=== PATIENT | male | born 1930 | race Caucasian/White ===

== ENCOUNTER 2016-08-30 12:04 | Emergency (ER) | payer OTHER ==
[2016-08-30 12:17] VITALS: BMI 25.0
--- NOTE | 2016-08-30 12:37 | PDOC ---
History of Present Illness - General Chief Complaint: Injury Stated Complaint: FALL Time Seen by Provider: 08/30/16 12:37 History Source: Patient Exam Limitations: No Limitations - History of Present Illness Initial Comments: 08/30/16 12:37 CHIEF COMPLAINT HISTORY OF PRESENT ILLNESS: History obtained from patients as he has alzheimers Patient is a 86 year old male, a resident of [facility], was brought in after he tripped and fell hitting his head on the right side. A/c to the patient's , she was informed that patient tripped and fell from a chair this morning at around 10:30am. Didn't lose consciousness or have seizure. Patient has no complaints. Denies headache, dizziness, loc, tingling, numbness, abdominal pain, nausea, vomiting, chest pain, sob, cough, palpitation. Bowel/Bladder habit normal. Sleep/Appetite Normal. Recent Travel: None PAST MEDICAL HISTORY: Hypertension, Hyperlipidemia, Alzheimers. PAST SURGICAL HISTORY: Couldn't be obtained Social History: Smoking: Denies Alcohol: Denies Drugs: Denies Family History: Allergies: NKDA Past History - Past Medical History Allergies/Adverse Reactions: Allergies Allergy/AdvReac Type Severity Reaction Status Date / Time No Known Allergies Allergy Verified 08/30/16 12:18 Home Medications: Ambulatory Orders Amlodipine Besylate [Norvasc -] 10 mg PO DAILY #30 tablet 05/31/14 Memantine HCl [Namenda -] 5 mg PO BID #60 tab 05/31/14 Tamsulosin HCl [Flomax -] 0.4 mg PO DAILY@0830 #30 cap.er.24h 05/31/14 Carvedilol [Coreg -] 3.125 mg PO BID 08/30/16 Citalopram Hydrobromide [Celexa -] 10 mg PO DAILY 08/30/16 Dementia: Yes Disorders: Yes (enlaerged prostate) HTN: Yes Hypercholesterolemia: Yes Suicide Attempt (Hx): No - Surgical History Abdominal Surgery: Yes (hernia) Cholecystectomy: Yes - Psycho/Social/Smoking Cessation Hx Anxiety: Yes Suicidal Ideation: No Smoking History: Never smoked Hx Alcohol Use: No Drug/Substance Use Hx: No Substance Use Type: None Review of Systems - Review of Systems Able to Perform ROS?: Yes Comments:: 08/30/16 17:19 CONSTITUTIONAL:~ Absent: fever, chills, diaphoresis, generalized weakness, malaise, loss of appetite HEENT:~ Absent: rhinorrhea, nasal congestion, throat pain, throat swelling, difficulty swallowing, mouth swelling, ear pain, eye pain, visual Changes CARDIOVASCULAR:~ Absent: chest pain, syncope, palpitations, irregular heart rate, lightheadedness , peripheral edema RESPIRATORY:~ Absent: cough, shortness of breath, dyspnea with exertion, orthopnea, wheezing, stridor, hemoptysis GASTROINTESTINAL: Absent: abdominal pain, abdominal distension, nausea, vomiting, diarrhea, constipation, melena, hematochezia GENITOURINARY:~ Absent: dysuria, frequency, urgency, hesitancy, hematuria, flank pain, genital pain MUSCULOSKELETAL:~ Absent: myalgia, arthralgia, joint swelling SKIN:~ Absent: rash, itching, pallor HEMATOLOGIC/IMMUNOLOGIC:~ Absent: easy bleeding, easy bruising, lymphadenopathy, frequent infections ENDOCRINE: Absent: unexplained weight gain, unexplained weight loss, heat intolerance, cold intolerance NEUROLOGIC: Present: Laceration in the right eyebrow Absent: headache, focal weakness or paresthesias, dizziness, unsteady gait, seizure, mental status changes, bladder or bowel incontinence PSYCHIATRIC:~ Absent: anxiety, depression, suicidal or homicidal ideation, hallucinations. Is the patient limited Turkmen proficient: No *Physical Exam - Vital Signs Last Vital Signs Temp Pulse Resp BP Pulse Ox 97.6 F 64 17 127/108 99 08/30/16 12:15 08/30/16 12:15 08/30/16 12:15 08/30/16 12:15 08/30/16 12:15 - Physical Exam Comments: 08/30/16 17:43 PE: GENERAL: Awake, alert, and fully oriented, in no acute distress HEAD: No signs of trauma EYES: PERRLA, EOMI, sclera anicteric, conjunctiva clear ENT: Auricles normal inspection, hearing grossly normal, nares patent, oropharynx clear without exudates. Moist mucosa NECK: Normal ROM, supple, no lymphadenopathy, JVD, or masses LUNGS: Breath sounds equal, clear to auscultation bilaterally. No wheezes, and no crackles.. HEART: Regular rate and rhythm, normal S1 and S2, no murmurs, rubs or gallops ABDOMEN: Soft, nontender, normoactive bowel sounds. No guarding, no rebound. No masses EXTREMITIES: Normal range of motion, no edema. No clubbing or cyanosis. No cords, erythema, or tenderness NEUROLOGICAL: Cranial nerves II through XII grossly intact. Normal speech, normal gait SKIN: Right eye brow laceration approximately 7 x 0.5 cm Warm, Dry, normal turgor, no rashes or lesions noted. Medical Decision Making - Medical Decision Making 08/30/16 12:30 Patient seen and examined at bed side. Vitals noted, unremarkable. Patient looks comfortable. Physical exam: positive for .Right eye brow laceration approximately 7 x 0.[address] scan of head without contrast 08/30/16 13:[address] scan report reviewed, no acute pathology Procedure: suture application in the right eyebrow Under sterile environment, for anesthesia 1 % Lidocaine with Epi was used 7 ml was injected subcutaneously Skin brought together ad simple interrupted suture was done with 4' Proline suture material in usual fashion 4 sutures were applied There was No dirt or foreign body remains It was cleaned with normal saline and bandaid was applied Clinical impression: Laceration over the right eyebrow s/p fall CT head negative Suture applied Patient has been advised to keep the area clean and dry, to return to the ED for suture removal after 7 days or to return if any NEW symptoms develop. Illness, Investigation and Plan of care explained to the patient, his and son. They verbalized understanding. Case seen and discussed with Dr. Agarwal. *DC/Admit/Observation/Transfer Diagnosis at time of Disposition: Laceration - Discharge Dispostion Admit: No - Referrals Referrals: Niru Hewitt [Primary Care Provider] - - Patient Instructions Printed Discharge Instructions: How to Care for a Laceration After Repair Additional Instructions: I am sorry you had a fall today. We did a head CT which looks normal. You had a small cut on the right eyebrow so we sutured it and you have 4 sutures. Please return to the Emergency for suture removal after 7 days. During the course of time, if you develop any NEW symptoms like severe headache, bleeding, altered mental status, infection or any problems, return to the Emergency Department immediately.
[2016-08-30] MEDS ORDERED: LIDOCAINE 1%/EPI 1:100000 (50 ML MULTI DOSE VIAL) INF ONE (14:44)
[2016-08-30] MEDS ORDERED: LIDOCAINE 1%/EPI 1:100000 (50 ML MULTI DOSE VIAL) ONE (14:44)
[2016-08-30 16:39] VITALS: BP 109/59; PULSE 75; TEMP 97.9
== END 2016-08-30 16:53 ==
LOC: JER 12:04
PROC: 0HQ1XZZ Repair Face Skin, External Approach (ICD-10-PCS; principal; 2016-08-30)
DX: S01.111A Laceration without foreign body of right eyelid and periocular area, initial encounter (principal); W07.XXXA Fall from chair, initial encounter; Y93.89 Activity, other specified; Y92.128 Other place in nursing home as the place of occurrence of the external cause; I10 Essential (primary) hypertension; E78.5 Hyperlipidemia, unspecified; E78.00 Pure hypercholesterolemia, unspecified; N40.0 Benign prostatic hyperplasia without lower urinary tract symptoms; G30.8 Other Alzheimer's disease; F02.80 Dementia in other diseases classified elsewhere, unspecified severity, without behavioral disturbance, psychotic disturbance, mood disturbance, and anxiety
CPT/HCPCS: 70450-TC; 99281-25

== ENCOUNTER 2017-08-28 16:52 | Emergency (ER) | payer OTHER ==
[2017-08-28 17:09] VITALS: BMI 28.7
[2017-08-28] MEDS ORDERED: SODIUM CHLORIDE 500 ML IV STA (17:13)
--- NOTE | 2017-08-28 17:13 | PDOC ---
History of Present Illness - General History Source: Care Home Records, Other (emt) - History of Present Illness Occurred: reports: this afternoon <Emma Rizzo - Last Filed: 08/28/17 18:51> <Holly Mitchell - Last Filed: 08/28/17 21:00> - General Chief Complaint: Injury Stated Complaint: FALL Time Seen by Provider: 08/28/17 17:00 Past History - Past Medical History Dementia: Yes Disorders: Yes (enlaerged prostate) HTN: Yes Hypercholesterolemia: Yes Psychiatric Problems: (dementia) - Surgical History Abdominal Surgery: Yes (hernia) Cholecystectomy: Yes - Suicide/Smoking/Psychosocial Hx Smoking History: Never smoked Hx Alcohol Use: No Drug/Substance Use Hx: No Substance Use Type: None <Emma Rizzo - Last Filed: 08/28/17 18:51> <Holly Mitchell - Last Filed: 08/28/17 21:00> - Past Medical History Allergies/Adverse Reactions: Allergies Allergy/AdvReac Type Severity Reaction Status Date / Time No Known Allergies Allergy Verified 08/28/17 17:03 Home Medications: Ambulatory Orders Amlodipine Besylate [Norvasc -] 10 mg PO DAILY 08/28/17 Carvedilol [Coreg] 3.125 mg PO BID 08/28/17 Cephalexin Monohydrate [Keflex -] 500 mg PO BID #20 capsule 08/28/17 Cyanocobalamin [Vitamin B12 -] 100 mcg PO DAILY 08/28/17 Dextran 70/Hypromellose/Pf [Artificial Tears Drops] 1 each OP BID 08/28/17 Ferrous Sulfate [Ferosul] 330 mg PO DAILY 08/28/17 Tamsulosin HCl [Flomax] 0.4 mg PO DAILY 08/28/17 Review of Systems - Review of Systems Able to Perform ROS?: No (hx per [facility] staff) Constitutional: No: Fever Respiratory: No: Cough ABD/GI: No: Diarrhea, Vomiting Neurological: No: Seizure <Emma Rizzo Last Filed: 08/28/17 18:51> *Physical Exam - Physical Exam General Appearance: Yes: Appropriately Dressed. No: Apparent Distress HEENT: positive: Other (abrasion to mid forehead and over nasal bridge, no facial deformity or crepitus, EOMI) Neck: positive: Supple Respiratory/Chest: positive: Lungs Clear, Normal Breath Sounds. negative: Respiratory Distress Cardiovascular: positive: Regular Rate, S1, S2 Gastrointestinal/Abdominal: positive: Soft. negative: Tender Extremity: positive: Normal Inspection, Normal Range of Motion, Other (no deformity ). negative: Tender, Swelling Integumentary: positive: Dry, Warm Neurologic: positive: Alert, Normal Mood/Affect <Emma Rizzo - Last Filed: 08/28/17 18:51> - Vital Signs Last Vital Signs Temp Pulse Resp BP Pulse Ox 98.0 F 75 18 143/65 95 08/28/17 17:03 08/28/17 17:03 08/28/17 17:03 08/28/17 17:03 08/28/17 17:03 <Holly Mitchell - Last Filed: 08/28/17 21:00> Heart Score/ECG Review - ECG Intrepretation Comment:: 08/28/17 17:34 EKG with first degree AV block @ 75 bpm, unremarkable EKG otherwise <Emma Rizzo - Last Filed: 08/28/17 18:51> ED Treatment Course - LABORATORY CBC & Chemistry Diagram: 08/28/17 17:35 08/28/17 17:35 - RADIOLOGY Radiology Studies Ordered: Category Date Time Status FACIAL BONES CT W/O CONTRAST [CT] Stat CT Scan 08/28/17 17:[address] WITHOUT CONTRAST [CT] Stat CT Scan 08/28/17 17:07 Ordered CHEST X-RAY PORTABLE* [RAD] Stat Radiology 08/28/17 17:08 Ordered HIP & PELVIS-LEFT [RAD] Stat Radiology 08/28/17 17:08 Ordered HIP & PELVIS-RIGHT [RAD] Stat Radiology 08/28/17 17:08 Ordered <Emma Rizzo - Last Filed: 08/28/17 18:51> - LABORATORY CBC & Chemistry Diagram: 08/28/17 17:35 08/28/17 17:35 - ADDITIONAL ORDERS Additional order review: Laboratory Results 08/28/17 08/28/17 20:00 17:35 Sodium 146 H Potassium 3.5 Chloride 110 H Carbon Dioxide 27 Anion Gap 9 BUN 27 H D Creatinine 0.7 D Creat Clearance w eGFR > 60 Random Glucose 98 Calcium 8.7 Total Bilirubin 0.4 D AST 11 L ALT 20 Alkaline Phosphatase 100 Creatine Kinase 29 L Troponin I < 0.02 Total Protein 7.1 Albumin 3.3 L Urine Color Yellow Urine Appearance Clear Urine pH 5.0 Ur Specific [place] 1.024 Urine Protein Negative Urine Glucose (UA) Negative Urine Ketones Negative Urine Blood Negative Urine Nitrite Negative Urine Bilirubin Negative Urine Urobilinogen Negative Ur Leukocyte Esterase 3+ H Urine WBC (Auto) 40 Urine RBC (Auto) 11 Urine Bacteria Rare Hyaline Casts 2 Urine Mucus Rare 08/28/17 17:35 RBC 4.77 MCV 83.6 MCHC 33.5 RDW 13.9 MPV 7.8 Neutrophils % 59.8 Lymphocytes % 31.7 D Monocytes % 6.0 Eosinophils % 2.2 Basophils % 0.3 - Medications Given in the ED: ED Medications Discontinued Medications Generic Name Dose Route Start Last Admin Trade Name Freq PRN Reason Stop Dose Admin Sodium Chloride 500 mls @ 500 mls/hr 08/28/17 17:13 08/28/17 17:37 Normal Saline - IV 08/28/17 18:12 Not Given ASDIR STA <Holly Mitchell - Last Filed: 08/28/17 21:00> Medical Decision Making - Medical Decision Making 08/28/17 17:08 87-year-old male history of dementia, wheelchair bound, hypertension, hyperlipidemia, BPH, sent from [facility] after witnessed fall today. As per EMT staff reported that while sitting in wheelchair this afternoon. Patient fell forward hitting his head. No LOC or seizures. Patient not able to give any history. See exam Witness fall w/ head injury in [facility] No reported LOC, seizures or vomiting Baseline since per [facility] staff Not on blood thinners Stable w/ ED w/ facial abrasions, moving all extremities w/ no e/o serious injury at this time -CTH/facial bones -ekg/labs/ua as pt unable to give hx -[facility] if workup is unremarkable <Emma Rizzo - Last Filed: 08/28/17 18:51> *DC/Admit/Observation/Transfer <Emma Rizzo - Last Filed: 08/28/17 18:51> <Holly Mitchell - Last Filed: 08/28/17 21:00> Diagnosis at time of Disposition: Abrasion Fall Qualifiers: Encounter type: initial encounter Qualified Code(s): W19.XXXA - Unspecified fall, initial encounter - Discharge Dispostion Condition at time of disposition: Good - Prescriptions Prescriptions: Cephalexin Monohydrate [Keflex -] 500 mg PO BID #20 capsule - Referrals Referrals: Niru Hewitt [Primary Care Provider] - - Patient Instructions Printed Discharge Instructions: DI for Abrasion Additional Instructions: Your labs, urine, ekg, CAT scan of your head, facial bones and chest x-ray were all unremarkable. Continue to follow-up with your PMD he has a UTI. we have given first dose of cephalexin here. he should cephalexin 500mg twice daily for 10 days - Post Discharge Activity
[2017-08-28 17:49] LABS: BASO % 0.3 % (0-2.0); EOS % 2.2 % (0-4.5); HEMATOCRIT 39.9 % (35.4-49); HEMOGLOBIN 13.4 GM/dL (11.7-16.9); LYMPH % 31.7 % (8-40); MCHC 33.5 g/dl (32.0-35.9); MEAN CELL VOLUME 83.6 fl (80-96); MEAN PLT VOLUME 7.8 fl (7.5-11.1); NEUT % 59.8 % (42.8-82.8); PLATELET COUNT 190 K/MM3 (134-434); RBC 4.77 M/mm3 (4.00-5.60); RDW 13.9 % (11.9-15.9); WHITE BLOOD COUNT 7.4 K/mm3 (4.0-10.0)
[2017-08-28 18:13] LABS: ALBUMIN 3.3 g/dl (3.4-5.0); ANION GAP 9 (8-16); BILIRUBIN,TOTAL 0.4 mg/dL (0.2-1.0); BLOOD UREA NITROGEN 27 mg/dL (7-18); CALCIUM 8.7 mg/dL (8.5-10.1); CHLORIDE 110 mmol/L (98-107); CO2 27 mmol/L (21-32); CREATININE 0.7 mg/dL (0.7-1.3); GLUCOSE,RANDOM 98 mg/dL (74-106); POTASSIUM 3.5 mmol/L (3.5-5.1); SGOT/AST 11 U/L (15-37); SGPT/ALT 20 U/L (12-78); SODIUM 146 mmol/L (136-145); TOT PROT 7.1 g/dl (6.4-8.2)
[2017-08-28 18:16] LABS: ALK PHOS 100 U/L (45-117)
[2017-08-28 20:14] LABS: URINE APPEARANCE CLEAR; URINE BILIRUBIN NEGATIVE (NEGATIVE); URINE BLOOD NEGATIVE (NEGATIVE); URINE COLOR YELLOW; URINE GLUCOSE (UA) NEGATIVE (NEGATIVE); URINE KETONE NEGATIVE (NEGATIVE); URINE NITRITE NEGATIVE (NEGATIVE); URINE PROTEIN NEGATIVE (NEGATIVE); URINE UROBILINOGEN NEGATIVE mg/dL (0.2-1.0)
[2017-08-28 20:24] LABS: URINE BACTERIA RARE /hpf (NONE SEEN); URINE HYALINE CAST 2 /lpf; URINE LEUK ESTERASE 3+ (NEGATIVE); URINE MUCUS RARE
[2017-08-28] MEDS ORDERED: CEPHALEXIN MONOHYDRATE 500 MG CAPSULE (UD) PO ONE (20:49)
--- NOTE | 2017-08-28 21:04 | PDOC ---
*Physical Exam - Vital Signs Last Vital Signs Temp Pulse Resp BP Pulse Ox 98.0 F 75 18 143/65 95 08/28/17 17:03 08/28/17 17:03 08/28/17 17:03 08/28/17 17:03 08/28/17 17:03 ED Treatment Course - LABORATORY CBC & Chemistry Diagram: 08/28/17 17:35 08/28/17 17:35 - ADDITIONAL ORDERS Additional order review: Laboratory Results 08/28/17 08/28/17 20:00 17:35 Sodium 146 H Potassium 3.5 Chloride 110 H Carbon Dioxide 27 Anion Gap 9 BUN 27 H D Creatinine 0.7 D Creat Clearance w eGFR > 60 Random Glucose 98 Calcium 8.7 Total Bilirubin 0.4 D AST 11 L ALT 20 Alkaline Phosphatase 100 Creatine Kinase 29 L Troponin I < 0.02 Total Protein 7.1 Albumin 3.3 L Urine Color Yellow Urine Appearance Clear Urine pH 5.0 Ur Specific [place] 1.024 Urine Protein Negative Urine Glucose (UA) Negative Urine Ketones Negative Urine Blood Negative Urine Nitrite Negative Urine Bilirubin Negative Urine Urobilinogen Negative Ur Leukocyte Esterase 3+ H Urine WBC (Auto) 40 Urine RBC (Auto) 11 Urine Bacteria Rare Hyaline Casts 2 Urine Mucus Rare 08/28/17 17:35 RBC 4.77 MCV 83.6 MCHC 33.5 RDW 13.9 MPV 7.8 Neutrophils % 59.8 Lymphocytes % 31.7 D Monocytes % 6.0 Eosinophils % 2.2 Basophils % 0.3 - Medications Given in the ED: ED Medications Discontinued Medications Generic Name Dose Route Start Last Admin Trade Name Freq PRN Reason Stop Dose Admin Sodium Chloride 500 mls @ 500 mls/hr 08/28/17 17:13 08/28/17 17:37 Normal Saline - IV 08/28/17 18:12 Not Given ASDIR STA Medical Decision Making - Medical Decision Making 08/28/17 21:00 All labs reviewed. UA significant for UTI will treat with cephalexin. I spoke to Nursing Coal Inspector Reese Landin. Will d/c home. *DC/Admit/Observation/Transfer Diagnosis at time of Disposition: Abrasion Fall Qualifiers: Encounter type: initial encounter Qualified Code(s): W19.XXXA - Unspecified fall, initial encounter UTI (urinary tract infection) Qualifiers: Urinary tract infection type: acute cystitis Hematuria presence: without hematuria Qualified Code(s): N30.00 - Acute cystitis without hematuria - Discharge Dispostion Condition at time of disposition: Good - Prescriptions Prescriptions: Cephalexin Monohydrate [Keflex -] 500 mg PO BID #20 capsule - Referrals Referrals: Niru Hewitt [Primary Care Provider] - - Patient Instructions Printed Discharge Instructions: DI for Abrasion Additional Instructions: Your labs, urine, ekg, CAT scan of your head, facial bones and chest x-ray were all unremarkable. Continue to follow-up with your PMD he has a UTI. we have given first dose of cephalexin here. he should cephalexin 500mg twice daily for 10 days - Post Discharge Activity
[2017-08-28] MEDS ORDERED: CEPHALEXIN MONOHYDRATE 250 MG CAPSULE (FP) ONE (21:11)
[2017-08-28 21:56] VITALS: BP 139/81; PULSE 78; TEMP 98.7
--- NOTE | 2017-08-29 11:40 | EKG ---
Test Reason : Blood Pressure : / mmHG Vent. Rate : 071 BPM Atrial Rate : 071 BPM P-R Int : 214 ms QRS Dur : 084 ms QT Int : 404 ms P-R-T Axes : 068 -25 044 degrees QTc Int : 439 ms POOR DATA QUALITY, INTERPRETATION MAY BE ADVERSELY AFFECTED SINUS RHYTHM WITH 1ST DEGREE A-V BLOCK OTHERWISE NORMAL ECG WHEN COMPARED WITH ECG OF 28-MAY-2014 16:46, NO SIGNIFICANT CHANGE WAS FOUND Confirmed by ROSA BENSON MD ([id number]) on 08/29/2017 11:40:33 AM Referred By: Confirmed By:ROSA BENSON MD
== END 2017-08-28 22:00 | disposition short-term general hospital (02) ==
LOC: JER 16:52
DX: S00.81XA Abrasion of other part of head, initial encounter (principal); F03.90 Unspecified dementia, unspecified severity, without behavioral disturbance, psychotic disturbance, mood disturbance, and anxiety; I10 Essential (primary) hypertension; W19.XXXA Unspecified fall, initial encounter; Y93.9 Activity, unspecified; Y92.129 Unspecified place in nursing home as the place of occurrence of the external cause
CPT/HCPCS: 36415; 70450-TC; 70486-TC; 71045-TC-FY; 80053; 81003; 81015; 82550; 84484; 85025; 87086; 87186; 93005; 93010; 99284-25